=== PATIENT | male | born 1955 | race African-American/Black ===

== ENCOUNTER 2019-02-28 20:43 | Inpatient (IN) | payer MEDICARE, MEDICAID ==
[~2019-02-28] VITALS: Ht 167.6 cm; Wt 90.7 kg
[~2019-02-28 20:43] MED LIST: ALBU18HF2 IH; AMLO10TA80 PO; ASPI-1393 PO; BENA20TA10 PO; CHOL500010 PO; CLOP75TA33 PO; FLUT1DIS IH; FURO-152 PO; GABA-529 PO; HYDR-4134 PO; INSU3INS6 SUBCUT; ISOS60TA4 PO; METO-539 PO; MOME13HF INH; NEPVIT PO; SEVE800T8 PO
[2019-02-28] MEDS ORDERED: METHYLPREDNISOLONE SOD SUCC 125 MG/2 ML VIAL IV STA (21:32)
[2019-02-28] MEDS ORDERED: IPRATROPIUM/ALBUTEROL 0.5-3(2.5)MG/3ML NEB HHN ONE (21:45)
[2019-02-28] MEDS ORDERED: LEVOFLOXACIN 750MG PREMIX 150 ML IV ONE (21:45)
[2019-02-28 22:11] LABS: BASOPHILS % 0.3 % (0.0-2.0); HEMATOCRIT. 32.2 % (42.0-52.0); HEMOGLOBIN. 10.7 g/dL (14.0-18.0); LYMPHOCYTES % 24.1 % (20.0-50.0); MEAN CORPUSCULAR HEMOGLOBIN 31.3 pg (28.0-32.0); MEAN CORPUSCULAR VOLUME 93.9 fL (80.0-94.0); MEAN PLATELET VOLUME 9.8 fl (7.4-10.4); MONOCYTES % 10.8 % (2.0-8.0); NEUTROPHILS % 62.8 % (40.0-76.0); PLATELET 213 x1000/uL (130-400); RED BLOOD CELL COUNT 3.43 mill/uL (4.7-6.1); RED CELL DISTRIBUTION WIDTH 14.2 % (11.6-14.6)
[2019-02-28 22:17] LABS: BG BASE EXCESS 5.7 mmol/L (-2.0-2.0); BG CARBOXYHEMOGLOBIN 2.5 % (0.5-1.5); BG DEOXYHEMOGLOBIN 27.7 % (0.0-5.0); BG FRACTION INSPIRED OXYGEN 50; BG HCO3 ACT 31.3 mmol/L (22.0-26.0); BG METHEMOGLOBIN 0.1 % (0.0-1.5); BG OXYGEN SATURATION 71.6 % (92.0-98.5); BG OXYHEMOGLOBIN 69.7 % (94.0-97.0); BG PCO2 49.9 mmHg (35.0-45.0); BG PH 7.415 (7.350-7.450); BG PO2 36.7 mmHg (75.0-100.0); BG SAMPLE SITE RIGHT RADIAL; BG TOTAL HEMOGLOBIN 11.5 g/dL (12.0-18.0); BG VENT MODE MASK - AEROSOL
[2019-02-28 22:17] LABS: CHLORIDE 102 mEq/L (98-107)
[2019-02-28 22:21] LABS: ETHANOL BLOOD < 10 mg/dL
[2019-02-28] MEDS ORDERED: FUROSEMIDE 40MG/4ML VIAL IVP ONE (22:45)
[2019-02-28] MEDS ORDERED: POTASSIUM CHLORIDE 20MEQ TABLET SR PO NR (23:15)
[2019-03-01] VITALS (7 sets, daily range): BP systolic 142–173; BP diastolic 67–87
[2019-03-01] MEDS ORDERED: CLONIDINE 0.1MG TABLET PO PRN (02:15)
[2019-03-01] MEDS ORDERED: GUAIFENESIN 200MG/10ML SUGAR FREE UDC PO PRN (02:15)
[2019-03-01] MEDS ORDERED: ONDANSETRON HCL 4MG/2ML INJ IV PRN (02:15)
[2019-03-01] MEDS ORDERED: MORPHINE SULFATE 2 MG/ML CPJ (NOT FOR IM USE) IV PRN (02:15)
[2019-03-01] MEDS ORDERED: MAGNESIUM/ALUMINUM HYDROXIDE/SIMETHICONE 30ML UDC PO PRN (02:15)
[2019-03-01] MEDS ORDERED: DIPHENHYDRAMINE 50MG/ML VIAL IV PRN (02:15)
[2019-03-01] MEDS ORDERED: ACETAMINOPHEN 325MG TABLET PO PRN (02:15)
[2019-03-01] MEDS ORDERED: HYDROCODONE/ACETAMINOPHEN 5/325MG TABLET PO PRN (02:15)
[2019-03-01] MEDS ORDERED: DOCUSATE SODIUM 100MG CAPSULE PO PRN (02:15)
[2019-03-01] MEDS ORDERED: DEXTROSE 50% WATER 50ML SYRINGE IV PRN (03:15)
[2019-03-01] MEDS: INSULIN LISPRO 100 UNITS/ML SUBCUT SCH ×4 (06:34→21:00)
[2019-03-01] MEDS: BLOOD SUGAR DIAGNOSTIC STRIP TEST SCH ×4 (06:34→21:52)
[2019-03-01] MEDS: IPRATROPIUM/ALBUTEROL 0.5-3(2.5)MG/3ML NEB INH PRN (08:20)
[2019-03-01] MEDS ORDERED: AMLODIPINE 10MG TABLET PO SCH (09:00)
[2019-03-01] MEDS ORDERED: ENOXAPARIN 30MG/0.3ML SYR SUBCUT SCH (09:00)
[2019-03-01] MEDS: CLOPIDOGREL 75MG TABLET PO SCH (10:17)
[2019-03-01] MEDS: GABAPENTIN 100MG CAPSULE PO SCH ×2 (13:27→21:58)
[2019-03-01] MEDS: ISOSORBIDE MONONITRATE 60MG TABLET SR 24HR PO SCH (17:07)
[2019-03-01] MEDS: HYDRALAZINE HCL 50MG TABLET PO SCH (21:59)
[2019-03-01] MEDS: METOPROLOL TARTRATE 50MG TABLET PO SCH (21:59)
[2019-03-01] MEDS: INSULIN GLARGINE UD 100 UNITS/ML SYR SUBCUT SCH (22:00)
[2019-03-01] MEDS ORDERED: CALC667T2 MT (23:00)
[2019-03-01] MEDS ORDERED: MONT10TA21 MT (23:00)
[2019-03-01] MEDS ORDERED: LEVOFLOXACIN 500MG PREMIX 100 ML IV SCH (23:00)
[2019-03-02] VITALS: BP 122/47
[2019-03-02 04:00] VITALS: BP 135/74
[2019-03-02] MEDS: GABAPENTIN 100MG CAPSULE PO SCH ×3 (06:00→21:41)
[2019-03-02] MEDS: INSULIN LISPRO 100 UNITS/ML SUBCUT SCH ×5 (06:16→21:36)
[2019-03-02] MEDS: BLOOD SUGAR DIAGNOSTIC STRIP TEST SCH ×4 (06:17→21:40)
[2019-03-02 06:47] LABS: BASOPHILS % 0.2 % (0.0-2.0); EOSINOPHILS % 0.2 % (0.0-5.0); HEMATOCRIT. 29.4 % (42.0-52.0); HEMOGLOBIN. 9.9 g/dL (14.0-18.0); LYMPHOCYTES % 12.2 % (20.0-50.0); MEAN CORPUSCULAR HEMOGLOBIN 31.7 pg (28.0-32.0); MEAN CORPUSCULAR VOLUME 94.4 fL (80.0-94.0); MEAN PLATELET VOLUME 10.2 fl (7.4-10.4); MONOCYTES % 8.2 % (2.0-8.0); NEUTROPHILS % 79.2 % (40.0-76.0); PLATELET 220 x1000/uL (130-400); RED BLOOD CELL COUNT 3.12 mill/uL (4.7-6.1); RED CELL DISTRIBUTION WIDTH 14.1 % (11.6-14.6)
[2019-03-02 08:00] VITALS: BP 136/73
[2019-03-02 08:00] LABS: CHLORIDE 103 mEq/L (98-107)
[2019-03-02 08:08] LABS: LDL CHOLESTEROL 67 mg/dL (5-100)
[2019-03-02 08:09] LABS: HDL CHOLESTEROL 67 mg/dL (40-59)
[2019-03-02] MEDS: ENOXAPARIN 40MG/0.4ML SYR SUBCUT SCH (08:15)
[2019-03-02] MEDS: CLOPIDOGREL 75MG TABLET PO SCH (08:15)
[2019-03-02] MEDS: HYDRALAZINE HCL 50MG TABLET PO SCH ×2 (08:16→21:00)
[2019-03-02] MEDS: AMLODIPINE 10MG TABLET PO SCH (08:16)
[2019-03-02] MEDS: ISOSORBIDE MONONITRATE 60MG TABLET SR 24HR PO SCH (08:16)
[2019-03-02] MEDS: METOPROLOL TARTRATE 50MG TABLET PO SCH ×2 (08:16→21:00)
[2019-03-02] MEDS: IPRATROPIUM/ALBUTEROL 0.5-3(2.5)MG/3ML NEB INH PRN (08:38)
[2019-03-02] MEDS: PREDNISONE 20MG TABLET PO SCH (11:10)
[2019-03-02] MEDS: CALCIUM ACETATE 667MG CAPSULE PO SCH ×2 (11:59→17:29)
[2019-03-02 12:00] VITALS: BP 136/71
[2019-03-02] MEDS: IPRATROPIUM/ALBUTEROL 0.5-3(2.5)MG/3ML NEB HHN SCH ×2 (14:30→21:07)
[2019-03-02 16:00] VITALS: BP 140/74
[2019-03-02 20:00] VITALS: BP 133/72
[2019-03-02] MEDS ORDERED: LEVOFLOXACIN 250MG PREMIX 50 ML IV SCH ×2 (21:00→23:00)
[2019-03-02] MEDS: INSULIN GLARGINE UD 100 UNITS/ML SYR SUBCUT SCH (21:37)
[2019-03-03] VITALS: BP 144/77
[2019-03-03] MEDS: IPRATROPIUM/ALBUTEROL 0.5-3(2.5)MG/3ML NEB HHN SCH ×2 (02:09→09:54)
[2019-03-03 04:00] VITALS: BP 131/73
[2019-03-03] MEDS: BLOOD SUGAR DIAGNOSTIC STRIP TEST SCH ×2 (06:24→12:23)
[2019-03-03] MEDS: INSULIN LISPRO 100 UNITS/ML SUBCUT SCH ×2 (06:24→12:23)
[2019-03-03] MEDS: GABAPENTIN 100MG CAPSULE PO SCH (06:24)
[2019-03-03 08:00] VITALS: BP 161/80
[2019-03-03] MEDS: CLOPIDOGREL 75MG TABLET PO SCH (08:06)
[2019-03-03] MEDS: CALCIUM ACETATE 667MG CAPSULE PO SCH ×2 (08:06→12:20)
[2019-03-03] MEDS: PREDNISONE 20MG TABLET PO SCH (08:06)
[2019-03-03] MEDS: ENOXAPARIN 40MG/0.4ML SYR SUBCUT SCH (08:06)
[2019-03-03] MEDS: HYDRALAZINE HCL 50MG TABLET PO SCH (08:12)
[2019-03-03] MEDS: ISOSORBIDE MONONITRATE 60MG TABLET SR 24HR PO SCH (08:12)
[2019-03-03] MEDS: AMLODIPINE 10MG TABLET PO SCH (08:13)
[2019-03-03] MEDS: METOPROLOL TARTRATE 50MG TABLET PO SCH (08:13)
[2019-03-03 11:12] VITALS: BP_SYST 140; BP_SYST 161; BP_DIAS 79; BP_DIAS 80
[2019-03-03 12:00] VITALS: BP 115/67
== END 2019-03-03 14:15 | disposition home or self-care (01) | DRG 291 ==
LOC: ER 20:43 → EDBEDREQ 22:40 → 8WST 23:09 → EDBEDREQTM 23:11 → EDBEDREQ 23:11 → ENRESERV 03-01 00:04
PROVIDERS: ADMIT Hospitalist; ATTEND Hospitalist
PROC: 5A1D70Z Performance of Urinary Filtration, Intermittent, Less than 6 Hours Per Day (ICD-10-PCS; principal; 2019-03-02)
DX: I13.2 Hypertensive heart and chronic kidney disease with heart failure and with stage 5 chronic kidney disease, or end stage renal disease (principal); I50.33 Acute on chronic diastolic (congestive) heart failure; J18.9 Pneumonia, unspecified organism; N18.6 End stage renal disease; Z99.2 Dependence on renal dialysis; E11.22 Type 2 diabetes mellitus with diabetic chronic kidney disease; D63.1 Anemia in chronic kidney disease; E11.40 Type 2 diabetes mellitus with diabetic neuropathy, unspecified; E11.36 Type 2 diabetes mellitus with diabetic cataract; E11.51 Type 2 diabetes mellitus with diabetic peripheral angiopathy without gangrene; R07.89 Other chest pain; J32.9 Chronic sinusitis, unspecified; E78.5 Hyperlipidemia, unspecified; F17.210 Nicotine dependence, cigarettes, uncomplicated; G43.909 Migraine, unspecified, not intractable, without status migrainosus; J45.909 Unspecified asthma, uncomplicated; K59.09 Other constipation; M19.90 Unspecified osteoarthritis, unspecified site; Z79.02 Long term (current) use of antithrombotics/antiplatelets; Z79.4 Long term (current) use of insulin; Z79.51 Long term (current) use of inhaled steroids; Z79.899 Other long term (current) drug therapy; Z82.49 Family history of ischemic heart disease and other diseases of the circulatory system; Z83.3 Family history of diabetes mellitus
CPT/HCPCS: 36415; 36600; 71045; 80061; 80320; 82375; 82805; 82962; 83036; 83735; 83880; 84484; 93005; 93970; 94640; 96365; 99285; J1650; J1815; J1940; J1956; J2930; J7512; J7620; G0480

== ENCOUNTER 2019-03-27 09:57 | Inpatient (IN) | payer MEDICARE, MEDICAID ==
[~2019-03-27] VITALS: Ht 172.7 cm; Wt 92.5 kg
[~2019-03-27 09:57] MED LIST changes: +CALC667T2 MT; +MONT10TA21 MT
[2019-03-27] MEDS ORDERED: FAMOTIDINE 20MG/2ML VIAL IV ONE (10:45)
[2019-03-27] MEDS ORDERED: METHYLPREDNISOLONE SOD SUCC 125 MG/2 ML VIAL IV ONE (10:45)
[2019-03-27] MEDS ORDERED: SODIUM CHLORIDE 0.9% 1000ML BAG (SEPSIS BOLUS) IV ONE (10:45)
[2019-03-27 11:48] LABS: BASOPHILS % 0.9 % (0.0-2.0); EOSINOPHILS % 0.4 % (0.0-5.0); HEMATOCRIT. 32.8 % (42.0-52.0); HEMOGLOBIN. 10.8 g/dL (14.0-18.0); LYMPHOCYTES % 7.5 % (20.0-50.0); MEAN CORPUSCULAR HEMOGLOBIN 31.5 pg (28.0-32.0); MEAN CORPUSCULAR VOLUME 95.6 fL (80.0-94.0); MEAN PLATELET VOLUME 9.6 fl (7.4-10.4); MONOCYTES % 2.3 % (2.0-8.0); NEUTROPHILS % 88.9 % (40.0-76.0); PLATELET 184 x1000/uL (130-400); RED BLOOD CELL COUNT 3.43 mill/uL (4.7-6.1); RED CELL DISTRIBUTION WIDTH 15.1 % (11.6-14.6)
[2019-03-27 11:55] LABS: CHLORIDE 106 mEq/L (98-107)
[2019-03-27] MEDS ORDERED: CLONIDINE 0.2MG TABLET PO PRN (16:30)
[2019-03-27] MEDS ORDERED: ACETAMINOPHEN 325MG TABLET PO PRN (16:30)
[2019-03-27] MEDS ORDERED: ONDANSETRON HCL 4MG/2ML INJ IV PRN (16:30)
[2019-03-27] MEDS ORDERED: ALBUTEROL (0.5%) 2.5MG/0.5ML NEB HHN PRN (16:30)
[2019-03-27 17:00] VITALS: BP 130/70
[2019-03-27] MEDS: BLOOD SUGAR DIAGNOSTIC STRIP TEST SCH ×2 (17:10→21:02)
[2019-03-27] MEDS ORDERED: INSULIN LISPRO 100 UNITS/ML SUBCUT SCH (17:40)
[2019-03-27] MEDS: INSULIN LISPRO (MEDIUM DOSE) 100 UNITS/ML SUBCUT SCH ×2 (17:40→21:34)
[2019-03-27] MEDS: CALCIUM ACETATE 667MG CAPSULE PO SCH (19:07)
[2019-03-27] MEDS: MONTELUKAST SODIUM 10MG TABLET PO SCH (19:07)
[2019-03-27 20:00] VITALS: BP 136/61
[2019-03-27] MEDS: IPRATROPIUM/ALBUTEROL 0.5-3(2.5)MG/3ML NEB HHN SCH (20:16)
[2019-03-27] MEDS: BUDESONIDE 0.5MG/2ML NEB HHN SCH (20:16)
[2019-03-27] MEDS: HYDRALAZINE HCL 50MG TABLET PO SCH (21:01)
[2019-03-27] MEDS: METOPROLOL TARTRATE 50MG TABLET PO SCH (21:02)
[2019-03-27] MEDS: METHYLPREDNISOLONE SOD SUCC 40 MG/ML VIAL IV SCH (21:02)
[2019-03-27] MEDS: INSULIN GLARGINE UD 100 UNITS/ML SYR SUBCUT SCH (21:13)
[2019-03-27 21:58] LABS: BASOPHILS % 0.2 % (0.0-2.0); HEMATOCRIT. 32.1 % (42.0-52.0); HEMOGLOBIN. 10.6 g/dL (14.0-18.0); LYMPHOCYTES % 9.1 % (20.0-50.0); MEAN CORPUSCULAR VOLUME 96.9 fL (80.0-94.0); MEAN PLATELET VOLUME 10.4 fl (7.4-10.4); MONOCYTES % 4.2 % (2.0-8.0); NEUTROPHILS % 86.5 % (40.0-76.0); PLATELET 183 x1000/uL (130-400); RED BLOOD CELL COUNT 3.32 mill/uL (4.7-6.1); RED CELL DISTRIBUTION WIDTH 15.5 % (11.6-14.6)
[2019-03-27] MEDS ORDERED: DEXTROSE 50% WATER 50ML SYRINGE IV PRN (22:00)
[2019-03-28] VITALS (7 sets, daily range): BP systolic 133–157; BP diastolic 56–78
[2019-03-28] MEDS: IPRATROPIUM/ALBUTEROL 0.5-3(2.5)MG/3ML NEB HHN SCH ×5 (02:12→20:11)
[2019-03-28] MEDS: BLOOD SUGAR DIAGNOSTIC STRIP TEST SCH ×7 (07:14→21:00)
[2019-03-28] MEDS: METHYLPREDNISOLONE SOD SUCC 40 MG/ML VIAL IV SCH ×2 (07:14→12:20)
[2019-03-28] MEDS: INSULIN LISPRO (MEDIUM DOSE) 100 UNITS/ML SUBCUT SCH ×3 (07:15→12:23)
[2019-03-28 07:29] LABS: CHLORIDE 104 mEq/L (98-107)
[2019-03-28] MEDS: INSULIN LISPRO 100 UNITS/ML SUBCUT SCH ×3 (07:37→17:17)
[2019-03-28] MEDS: CALCIUM ACETATE 667MG CAPSULE PO SCH ×3 (07:40→17:18)
[2019-03-28] MEDS: HYDRALAZINE HCL 50MG TABLET PO SCH ×2 (08:05→22:18)
[2019-03-28] MEDS: ISOSORBIDE MONONITRATE 60MG TABLET SR 24HR PO SCH (08:05)
[2019-03-28] MEDS: BENAZEPRIL 10MG TABLET PO SCH (08:30)
[2019-03-28] MEDS: METOPROLOL TARTRATE 50MG TABLET PO SCH ×2 (08:30→22:17)
[2019-03-28] MEDS: AMLODIPINE 10MG TABLET PO SCH (08:30)
[2019-03-28] MEDS ORDERED: PNEUMOCOCCAL 23-VAL P-SAC VAC 0.5 ML IM ONE (09:00)
[2019-03-28] MEDS: FOLIC ACID/VITAMIN B COMP W-C TABLET PO SCH (09:00)
[2019-03-28] MEDS: LORATADINE 10MG TABLET PO SCH (09:00)
[2019-03-28] MEDS: FAMOTIDINE 20MG TABLET PO SCH (09:00)
[2019-03-28] MEDS: BUDESONIDE 0.5MG/2ML NEB HHN SCH ×2 (10:10→20:11)
[2019-03-28] MEDS: MONTELUKAST SODIUM 10MG TABLET PO SCH (16:17)
[2019-03-28] MEDS ORDERED: DEXTROSE 50% WATER 50ML SYRINGE IV PRN (17:15)
[2019-03-28] MEDS ORDERED: EPOETIN ALFA 10000UNITS/ML VIAL IV SCH (21:00)
[2019-03-28] MEDS: INSULIN GLARGINE UD 100 UNITS/ML SYR SUBCUT SCH (22:24)
[2019-03-29] MEDS: IPRATROPIUM/ALBUTEROL 0.5-3(2.5)MG/3ML NEB HHN SCH ×4 (02:19→20:47)
[2019-03-29 04:00] VITALS: BP 144/73
[2019-03-29] MEDS: INSULIN LISPRO 100 UNITS/ML SUBCUT SCH ×5 (05:09→21:31)
[2019-03-29] MEDS: BLOOD SUGAR DIAGNOSTIC STRIP TEST SCH ×4 (06:20→20:53)
[2019-03-29 07:01] LABS: BASOPHILS % 0.3 % (0.0-2.0); HEMATOCRIT. 30.8 % (42.0-52.0); HEMOGLOBIN. 10.1 g/dL (14.0-18.0); LYMPHOCYTES % 11.4 % (20.0-50.0); MEAN CORPUSCULAR HEMOGLOBIN 31.3 pg (28.0-32.0); MEAN CORPUSCULAR VOLUME 95.5 fL (80.0-94.0); MEAN PLATELET VOLUME 10.5 fl (7.4-10.4); MONOCYTES % 9.4 % (2.0-8.0); NEUTROPHILS % 78.9 % (40.0-76.0); PLATELET 203 x1000/uL (130-400); RED BLOOD CELL COUNT 3.22 mill/uL (4.7-6.1); RED CELL DISTRIBUTION WIDTH 15.5 % (11.6-14.6)
[2019-03-29 08:00] VITALS: BP 164/69
[2019-03-29] MEDS: BUDESONIDE 0.5MG/2ML NEB HHN SCH ×2 (08:01→20:47)
[2019-03-29] MEDS ORDERED: METHYLPREDNISOLONE SOD SUCC 40 MG/ML VIAL IV SCH (09:00)
[2019-03-29] MEDS: FOLIC ACID/VITAMIN B COMP W-C TABLET PO SCH (09:07)
[2019-03-29] MEDS: CALCIUM ACETATE 667MG CAPSULE PO SCH ×3 (09:08→17:01)
[2019-03-29] MEDS: ISOSORBIDE MONONITRATE 60MG TABLET SR 24HR PO SCH (09:08)
[2019-03-29] MEDS: HYDRALAZINE HCL 50MG TABLET PO SCH ×2 (09:08→21:27)
[2019-03-29] MEDS: FAMOTIDINE 20MG TABLET PO SCH (09:08)
[2019-03-29] MEDS: BENAZEPRIL 10MG TABLET PO SCH (09:09)
[2019-03-29] MEDS: AMLODIPINE 10MG TABLET PO SCH (09:09)
[2019-03-29] MEDS: LORATADINE 10MG TABLET PO SCH (09:09)
[2019-03-29] MEDS: METOPROLOL TARTRATE 50MG TABLET PO SCH ×2 (09:09→21:27)
[2019-03-29 12:00] VITALS: BP 136/71
[2019-03-29 16:00] VITALS: BP 113/57
[2019-03-29] MEDS ORDERED: ASPIRIN 81MG EC TABLET PO SCH (16:30)
[2019-03-29] MEDS ORDERED: CLOPIDOGREL 75MG TABLET PO SCH (16:30)
[2019-03-29] MEDS: MONTELUKAST SODIUM 10MG TABLET PO SCH (17:01)
[2019-03-29] MEDS: CLOPIDOGREL 75MG TABLET PO SCH (17:01)
[2019-03-29] MEDS: ASPIRIN 81MG TABLET PO SCH (17:02)
[2019-03-29 20:00] VITALS: BP 134/62
[2019-03-29] MEDS ORDERED: INSULIN GLARGINE UD 100 UNITS/ML SYR SUBCUT SCH (22:00)
[2019-03-30] VITALS: BP 138/78
[2019-03-30] MEDS: IPRATROPIUM/ALBUTEROL 0.5-3(2.5)MG/3ML NEB HHN SCH ×4 (01:43→21:31)
[2019-03-30 04:00] VITALS: BP 135/75
[2019-03-30] MEDS: BLOOD SUGAR DIAGNOSTIC STRIP TEST SCH ×4 (05:55→20:16)
[2019-03-30] MEDS: INSULIN LISPRO 100 UNITS/ML SUBCUT SCH ×4 (06:27→21:00)
[2019-03-30 07:14] LABS: BASOPHILS % 0.4 % (0.0-2.0); HEMATOCRIT. 30.1 % (42.0-52.0); LYMPHOCYTES % 14.2 % (20.0-50.0); MEAN CORPUSCULAR HEMOGLOBIN 31.6 pg (28.0-32.0); MEAN PLATELET VOLUME 10.5 fl (7.4-10.4); MONOCYTES % 8.1 % (2.0-8.0); NEUTROPHILS % 77.3 % (40.0-76.0); PLATELET 200 x1000/uL (130-400); RED BLOOD CELL COUNT 3.17 mill/uL (4.7-6.1); RED CELL DISTRIBUTION WIDTH 15.7 % (11.6-14.6)
[2019-03-30 07:52] VITALS: BP 142/72
[2019-03-30] MEDS: CALCIUM ACETATE 667MG CAPSULE PO SCH ×3 (08:34→17:22)
[2019-03-30] MEDS: AMLODIPINE 10MG TABLET PO SCH (08:34)
[2019-03-30] MEDS: ASPIRIN 81MG TABLET PO SCH (08:34)
[2019-03-30] MEDS: POLYETHYLENE GLYCOL 3350 (17GM) 1 DOSE PACK PO SCH (08:34)
[2019-03-30] MEDS: FAMOTIDINE 20MG TABLET PO SCH (08:35)
[2019-03-30] MEDS: LORATADINE 10MG TABLET PO SCH (08:35)
[2019-03-30] MEDS: METOPROLOL TARTRATE 50MG TABLET PO SCH ×2 (08:35→21:52)
[2019-03-30] MEDS: HYDRALAZINE HCL 50MG TABLET PO SCH ×2 (08:35→21:52)
[2019-03-30] MEDS: ISOSORBIDE MONONITRATE 60MG TABLET SR 24HR PO SCH (08:35)
[2019-03-30] MEDS: METHYLPREDNISOLONE SOD SUCC 40 MG/ML VIAL IV SCH ×3 (08:36→23:54)
[2019-03-30] MEDS: FOLIC ACID/VITAMIN B COMP W-C TABLET PO SCH (08:37)
[2019-03-30] MEDS: BENAZEPRIL 10MG TABLET PO SCH (08:39)
[2019-03-30] MEDS: BUDESONIDE 0.5MG/2ML NEB HHN SCH ×2 (08:50→21:29)
[2019-03-30] MEDS: CLOPIDOGREL 75MG TABLET PO SCH (09:10)
[2019-03-30 12:08] VITALS: BP 121/61
[2019-03-30 16:28] VITALS: BP 113/52
[2019-03-30] MEDS ORDERED: INSULIN LISPRO 100 UNITS/ML SUBCUT NR ×2 (17:00→21:15)
[2019-03-30] MEDS: MONTELUKAST SODIUM 10MG TABLET PO SCH (17:22)
[2019-03-30] MEDS: LACTULOSE 20G/30ML UDC PO PRN (17:29)
[2019-03-30] MEDS ORDERED: INSULIN GLARGINE UD 100 UNITS/ML SYR SUBCUT NR (18:00)
[2019-03-30 20:00] VITALS: BP 125/61
[2019-03-30] MEDS: INSULIN GLARGINE UD 100 UNITS/ML SYR SUBCUT SCH (21:31)
[2019-03-30] MEDS ORDERED: INSULIN GLARGINE UD 100 UNITS/ML SYR SUBCUT SCH (22:30)
[2019-03-31] VITALS: BP 134/72
[2019-03-31] MEDS: IPRATROPIUM/ALBUTEROL 0.5-3(2.5)MG/3ML NEB HHN SCH ×4 (01:32→21:37)
[2019-03-31 04:00] VITALS: BP 126/64
[2019-03-31 05:30] LABS: BASOPHILS % 0.1 % (0.0-2.0); HEMATOCRIT. 31.2 % (42.0-52.0); HEMOGLOBIN. 10.2 g/dL (14.0-18.0); LYMPHOCYTES % 7.7 % (20.0-50.0); MEAN CORPUSCULAR HEMOGLOBIN 31.3 pg (28.0-32.0); MEAN CORPUSCULAR VOLUME 95.1 fL (80.0-94.0); MEAN PLATELET VOLUME 10.8 fl (7.4-10.4); MONOCYTES % 4.7 % (2.0-8.0); NEUTROPHILS % 87.5 % (40.0-76.0); PLATELET 197 x1000/uL (130-400); RED BLOOD CELL COUNT 3.28 mill/uL (4.7-6.1)
[2019-03-31] MEDS: BLOOD SUGAR DIAGNOSTIC STRIP TEST SCH ×4 (06:00→21:15)
[2019-03-31] MEDS: METHYLPREDNISOLONE SOD SUCC 40 MG/ML VIAL IV SCH ×3 (06:16→22:59)
[2019-03-31] MEDS: INSULIN LISPRO 100 UNITS/ML SUBCUT SCH ×4 (06:19→21:44)
[2019-03-31 08:00] VITALS: BP 147/65
[2019-03-31] MEDS: HYDRALAZINE HCL 50MG TABLET PO SCH ×2 (08:39→21:38)
[2019-03-31] MEDS: BENAZEPRIL 10MG TABLET PO SCH (08:40)
[2019-03-31] MEDS: METOPROLOL TARTRATE 50MG TABLET PO SCH ×2 (08:40→21:38)
[2019-03-31] MEDS: ISOSORBIDE MONONITRATE 60MG TABLET SR 24HR PO SCH (08:40)
[2019-03-31] MEDS: AMLODIPINE 10MG TABLET PO SCH (08:41)
[2019-03-31] MEDS: FAMOTIDINE 20MG TABLET PO SCH (09:40)
[2019-03-31] MEDS: CLOPIDOGREL 75MG TABLET PO SCH (09:40)
[2019-03-31] MEDS: CALCIUM ACETATE 667MG CAPSULE PO SCH ×3 (09:41→17:32)
[2019-03-31] MEDS: POLYETHYLENE GLYCOL 3350 (17GM) 1 DOSE PACK PO SCH (09:41)
[2019-03-31] MEDS: ASPIRIN 81MG TABLET PO SCH (09:41)
[2019-03-31] MEDS: LORATADINE 10MG TABLET PO SCH (09:41)
[2019-03-31] MEDS: FOLIC ACID/VITAMIN B COMP W-C TABLET PO SCH (09:43)
[2019-03-31] MEDS: INSULIN GLARGINE UD 100 UNITS/ML SYR SUBCUT SCH ×2 (10:56→21:44)
[2019-03-31] MEDS ORDERED: TERBUTALINE SULFATE 1MG/ML VIAL SUBCUT NR (11:30)
[2019-03-31 12:00] VITALS: BP 152/68
[2019-03-31] MEDS: BUDESONIDE 0.5MG/2ML NEB HHN SCH ×2 (14:06→21:37)
[2019-03-31 16:03] VITALS: BP 142/68
[2019-03-31] MEDS ORDERED: INSULIN GLARGINE UD 100 UNITS/ML SYR SUBCUT NR (17:30)
[2019-03-31] MEDS: LACTULOSE 20G/30ML UDC PO PRN (17:31)
[2019-03-31] MEDS: MONTELUKAST SODIUM 10MG TABLET PO SCH (17:32)
[2019-03-31 20:00] VITALS: BP 144/74
[2019-04-01] VITALS: BP 145/64
[2019-04-01] MEDS: IPRATROPIUM/ALBUTEROL 0.5-3(2.5)MG/3ML NEB HHN SCH ×3 (02:41→13:49)
[2019-04-01 04:00] VITALS: BP 149/75
[2019-04-01] MEDS: BLOOD SUGAR DIAGNOSTIC STRIP TEST SCH ×3 (06:22→17:48)
[2019-04-01] MEDS: METHYLPREDNISOLONE SOD SUCC 40 MG/ML VIAL IV SCH ×2 (06:29→15:15)
[2019-04-01] MEDS: CALCIUM ACETATE 667MG CAPSULE PO SCH ×3 (06:36→17:32)
[2019-04-01] MEDS: INSULIN LISPRO 100 UNITS/ML SUBCUT SCH ×3 (06:55→17:47)
[2019-04-01 08:00] VITALS: BP 149/78
[2019-04-01] MEDS: BUDESONIDE 0.5MG/2ML NEB HHN SCH (09:05)
[2019-04-01] MEDS: POLYETHYLENE GLYCOL 3350 (17GM) 1 DOSE PACK PO SCH (09:51)
[2019-04-01] MEDS: LACTULOSE 20G/30ML UDC PO PRN (09:51)
[2019-04-01] MEDS: CLOPIDOGREL 75MG TABLET PO SCH (09:51)
[2019-04-01] MEDS: ISOSORBIDE MONONITRATE 60MG TABLET SR 24HR PO SCH (09:52)
[2019-04-01] MEDS: BENAZEPRIL 10MG TABLET PO SCH (09:52)
[2019-04-01] MEDS: AMLODIPINE 10MG TABLET PO SCH (09:52)
[2019-04-01] MEDS: FAMOTIDINE 20MG TABLET PO SCH (09:53)
[2019-04-01] MEDS: LORATADINE 10MG TABLET PO SCH (09:53)
[2019-04-01] MEDS: HYDRALAZINE HCL 50MG TABLET PO SCH (09:53)
[2019-04-01] MEDS: METOPROLOL TARTRATE 50MG TABLET PO SCH (09:53)
[2019-04-01] MEDS: INSULIN GLARGINE UD 100 UNITS/ML SYR SUBCUT SCH (09:57)
[2019-04-01] MEDS: FOLIC ACID/VITAMIN B COMP W-C TABLET PO SCH (11:43)
[2019-04-01] MEDS: ASPIRIN 81MG TABLET PO SCH (11:43)
[2019-04-01 12:00] VITALS: BP 150/78
[2019-04-01] MEDS ORDERED: CLAR10 PO (16:39)
[2019-04-01] MEDS ORDERED: P20 MT (16:39)
[2019-04-01] MEDS ORDERED: LOT10 PO (16:39)
[2019-04-01] MEDS ORDERED: FAMO20TA8 PO (16:39)
[2019-04-01 17:15] VITALS: BP 130/70
[2019-04-01] MEDS: MONTELUKAST SODIUM 10MG TABLET PO SCH (17:33)
== END 2019-04-01 18:00 | disposition home or self-care (01) | DRG 915 ==
LOC: ER 09:57 → 8WST 14:10 → ENRESERV 15:20 → 8WST 17:06
PROVIDERS: ADMIT Internal Medicine; ATTEND Internal Medicine
PROC: 5A1D70Z Performance of Urinary Filtration, Intermittent, Less than 6 Hours Per Day (ICD-10-PCS; 2019-03-27)
PROC: 5A1D70Z Performance of Urinary Filtration, Intermittent, Less than 6 Hours Per Day (ICD-10-PCS; principal; 2019-03-30)
DX: T88.6XXA Anaphylactic reaction due to adverse effect of correct drug or medicament properly administered, initial encounter (principal); J96.01 Acute respiratory failure with hypoxia; N18.6 End stage renal disease; J44.1 Chronic obstructive pulmonary disease with (acute) exacerbation; I13.2 Hypertensive heart and chronic kidney disease with heart failure and with stage 5 chronic kidney disease, or end stage renal disease; E11.51 Type 2 diabetes mellitus with diabetic peripheral angiopathy without gangrene; K59.00 Constipation, unspecified; E11.65 Type 2 diabetes mellitus with hyperglycemia; Y83.8 Other surgical procedures as the cause of abnormal reaction of the patient, or of later complication, without mention of misadventure at the time of the procedure; J00 Acute nasopharyngitis [common cold]; D63.1 Anemia in chronic kidney disease; T50.8X5A Adverse effect of diagnostic agents, initial encounter; E11.22 Type 2 diabetes mellitus with diabetic chronic kidney disease; F17.210 Nicotine dependence, cigarettes, uncomplicated; I25.10 Atherosclerotic heart disease of native coronary artery without angina pectoris; I50.9 Heart failure, unspecified; T38.0X5A Adverse effect of glucocorticoids and synthetic analogues, initial encounter; Z91.013 Allergy to seafood; Z79.899 Other long term (current) drug therapy; Z91.041 Radiographic dye allergy status; Z99.2 Dependence on renal dialysis; Z71.6 Tobacco abuse counseling; Y92.89 Other specified places as the place of occurrence of the external cause
CPT/HCPCS: 36415; 71045; 80048; 82962; 83605; 83880; 84145; 84484; 93005; 94640; 96374; 99285; J1815; J2920; J2930; J3105; J3490; J7030; J7611; J7620; J7626